=== PATIENT | male | born 1975 | race Caucasian/White ===

== ENCOUNTER 2018-06-21 15:03 | Outpatient (CLI) | payer OTHER ==
--- NOTE | 2018-06-21 15:42 | XRAY Report ---
Reason: TENDINITIS OF RT WRIST Procedure Date: 06/21/2018 Accession Number: [id number] / [id number] Procedure: WCP - Wrist 3 View RT CPT Code: FULL RESULT: EXAM: RIGHT WRIST RADIOGRAPHY. EXAM DATE: 06/21/2018 03:24 PM. CLINICAL HISTORY: Tendinitis of right wrist. COMPARISON: None. TECHNIQUE: 3 views. FINDINGS: Bones: Normal. No fractures or bone lesions. Joints: Normal. No subluxations. Soft Tissues: Normal. No soft tissue swelling. IMPRESSION: Normal wrist radiography. RADIA
== END 2018-06-21 15:04 | disposition home or self-care (01) ==
LOC: DI.WCP 15:03
PROVIDERS: ATTEND Physician Assistant
DX: M77.9 Enthesopathy, unspecified (principal)

== ENCOUNTER 2025-01-18 17:30 | Observation (INO) ==
--- NOTE | 2025-01-18 17:37 | ED Physician Documentation ---
History of Present Illness Stated complaint Stated Complaint: PNEUMO Chief complaint Chief Complaint: Resp History obtained from History obtained from: Patient and EMS Additonal information Additional information: Previously healthy 49-year-old gentleman developed some upper back pain today and then shortness of breath. He went to the clinic where he had a chest x-ray done which shows a very large pneumothorax with some tension physiology on my personal interpretation. His vital signs though have been stable. He is never had a pneumothorax before. He does vape cannabis, does not smoke cigarettes. Meds/Allgy Home Medications Ambulatory Orders Medication Instructions Recorded Confirmed hydrocodone 5 mg-acetaminophen 325 1 - 2 ea PO Q6H PRN pain #14 tabs 05/19/16 mg tablet Allergies Allergies Allergy/AdvReac Type Severity Reaction Status Date / Time No Known Drug Allergies Allergy Verified 01/18/25 15:22 PFSH Active Problems All Active Problems (Updated 01/18/25 @ 18:24 by Zac Blake MD) Primary spontaneous pneumothorax (Acute) Social History Social History (Updated 01/18/25 @ 15:23 by Brooks Ho MA) Smoking Status: Never smoker Do you dip or chew tobacco?: No Do you vape?: No Do you feel safe in your home environment?: Yes History of physical, verbal, emotional, or financial abuse?: No Exam Exam Vital Signs: Vital Signs x48h Pulse Resp BP Pulse Ox O2 Flow Rate 01/18/25 18:21 88 20 01/18/25 18:16 91 21 136/84 H 98 0 01/18/25 18:14 136/84 H 01/18/25 18:08 93 132/72 H 97 01/18/25 18:03 86 120/72 99 01/18/25 17:58 86 136/92 H 98 01/18/25 17:54 98 152/106 H 98 01/18/25 17:46 100 149/110 H 98 01/18/25 17:30 104 H 27 H 148/104 H 97 Constitutional Looks mildly uncomfortable and tachypneic with mild tachycardia. Respiratory normal respiratory effort and clear to auscultation bilaterally Absent right breath sounds Gastrointestinal abdomen soft to palpation and nontender to palpation Results Vitals Vitals: Vital Signs - 24 hr 01/18/25 17:30 01/18/25 17:46 01/18/25 17:54 Pulse Rate 104 H 100 98 Respiratory Rate 27 H Blood Pressure 148/104 H 149/110 H 152/106 H O2 Saturation 97 98 98 O2 Source Room air If not protocol: Oxygen Flow, liters/minute Sedation scale Pain Intensity 7 01/18/25 17:58 01/18/25 17:59 01/18/25 18:03 Pulse Rate 86 86 Respiratory Rate Blood Pressure 136/92 H 120/72 O2 Saturation 98 99 O2 Source If not protocol: Oxygen Flow, liters/minute Sedation scale Pain Intensity 8 01/18/25 18:08 01/18/25 18:14 01/18/25 18:16 Pulse Rate 93 91 Respiratory Rate 21 Blood Pressure 132/72 H 136/84 H 136/84 H O2 Saturation 97 98 O2 Source Room air If not protocol: Oxygen Flow, liters/minute 0 Sedation scale 0-Fully awake Pain Intensity 7 01/18/25 18:21 Pulse Rate 88 Respiratory Rate 20 Blood Pressure O2 Saturation O2 Source If not protocol: Oxygen Flow, liters/minute Sedation scale Pain Intensity Oxygen O2 Source Room air Labs Labs: Laboratory Tests 01/18/25 17:43 WBC 10.3 RBC 5.07 Hgb 14.7 Hct 45.7 MCV 90.1 MCH 29.0 MCHC 32.2 RDW 12.5 Plt Count 268 MPV 9.2 Neut # (Auto) 7.9 H Lymph # (Auto) 1.3 L King # (Auto) 1.1 H Eos # (Auto) 0.1 Baso # (Auto) 0.0 Absolute Nucleated RBC 0.00 Nucleated RBC % 0.0 PT 13.3 H INR 1.2 Sodium 139 Potassium 4.0 Chloride 104 Carbon Dioxide 28 Anion Gap 7.0 BUN 12 Creatinine 0.9 Estimated GFR (MDRD) 89 Glucose 110 H Calcium 9.4 Procedures Chest Tube (location) - Major right 4th middle axillary line: Chest tube preparation: Consent obtained, Time out completed and Sterile prep and drape Chest tube location: Right Chest tube anesthesia: Lidocaine Chest tube size: 20 Chest tube return: Air and Connected to suction Chest tube after care: Sutured, Confirmed with xray and Pt tolerated well Procedural sedation Pre-Sedation Assessment Date: 01/18/25 Pre-Sedation Assessment Time must be prior to sedation: 17:40 Sedation prep: Informed consent, Time out completed, PE performed and ASA 1 - healthy Sedation Medications: versed (2mg IV and fentanyl 50mcg IV) Mallampati classification: I Patient status during sedation: Alert and Maintained airway Sedation recovery: Recovered uneventfully Time in sedation (Minutes): 15 PD Medical Decision Making ED course ED course: This is a 49-year-old gentleman with spontaneous pneumothorax. He does fit sort of the classic pattern of being a tall thin male although he has not had it before. He was seen immediately on arrival and a chest tube was placed under light sedation which she tolerated well. I spoke with Dr. Mak for chest tube management and Dr. Iglesias for admission at 6:[address] Mak did recommend CT to rule out structural lung disease which I have ordered. Postprocedural CT looking excellent with minimal remaining pneumothorax on my independent view. CBC, INR, and CMP unremarkable. Critical Care Critical Care Provided: Yes Time(min): 35 Time Includes: Direct patient care, Review records, Reassess patient and Document care Data interpretation: Labs and Pulse ox Procedures included in critical care time: Peripheral IV Procedures excluded from critical care time: Chest tube Discharge Plan Discharge Patient Disposition: [facility] DC/Xfer Condition: Serious Clinical Impression: Primary spontaneous pneumothorax Interventions: ED Admission Assessment Last Done: 01/18/25 18:45
[2025-01-18 17:46] LABS: HCT - HEMATOCRIT 45.7 % (42.0-52.0); HGB - HEMOGLOBIN 14.7 g/dL (14.0-18.0); MEAN PLATELET VOLUME 9.2 fL (7.4-11.4); NRBC ABSOLUTE COUNT (AUTO) 0.00 x10^3/uL; NUCLEATED RED BLOOD CELLS AUTO 0.0 /100WBC; PLT - PLATELET COUNT 268 10^3/uL (130-450); RED CELL DISTRIBUTION WIDTH 12.5 % (12.0-15.0)
[2025-01-18 17:57] LABS: INR 1.2 (0.8-1.2); PT - PROTHROMBIN TIME 13.3 secs (9.9-12.6)
[2025-01-18] MEDS: fentaNYL 100 MCG/2 ML VIAL IVP STA (17:59)
[2025-01-18] MEDS: MIDAZOLAM 2 MG/2 ML VIAL IVP STA (18:01)
[2025-01-18] MEDS: LIDOCAINE 1%-EPI 1:100000 20 ML MDV SUBQ STA (18:01)
[2025-01-18 18:02] LABS: BUN - BLOOD UREA NITROGEN 12.0 mg/dL (6-20); CARBON DIOXIDE - CO2 28.0 mmol/L (21-32); CREATININE 0.9 mg/dL (0.6-1.3); GFR - MDRD 89.0 (>89)
--- NOTE | 2025-01-18 18:56 | XRAY Report ---
PROCEDURE: XR Chest for Line Placement INDICATIONS: post chest tube TECHNIQUE: One view of the chest was acquired. COMPARISON: Chest radiograph from the same day FINDINGS: Surgical changes and devices: Interval placement of right-sided chest tube. Lungs and pleura: There is interval reexpansion of right lung with a small residual right apical pneumothorax measures 2.3 cm in craniocaudal dimension. Left lung is clear. No significant pleural effusion. Mediastinum: Mediastinal contours appear normal. Heart size is normal. Bones and chest wall: No suspicious bony lesions. Overlying soft tissues appear unremarkable. IMPRESSION: Interval placement of right-sided chest tube with interval reexpansion of right lung and small residual right-sided pneumothorax as above. Reviewed by: Javier Rosado MD on 01/18/2025 6:52 PM PDT Approved by: Javier Rosado MD on 01/18/2025 6:52 PM PDT Station ID: [id number]
[2025-01-18] MEDS ORDERED: SODIUM CHLORIDE FLUSH 0.9% 10 ML SYRINGE IVP PRN (19:00)
[2025-01-18] MEDS ORDERED: ONDANSETRON 4 MG/2 ML VIAL IVP PRN (19:00)
--- NOTE | 2025-01-18 19:28 | CONSULTATION NOTE ---
Referring Provider Name of Referring Provider:: Geeta Mak Consult Date: 01/18/25 Chief Complaint Chief Complaint Chief Complaint: Back pain History of Present Illness Admitted From Admitted From:: Home History Obtained From History obtained from: Patient interview History of Present Illness HPI Comment/Other: 49-year-old male, No past medical history. He was standing on top of the stump and the back of a dump truck attempting to fix a cover over the top of it when he slipped and fell with his tailbone landing directly on top of the stump that he was standing on. He reports that he had a knot in his back and started to gradually develop cough and difficulty with breathing. He reports the pain is worsened with coughing and laughing, and only minimally improved with ibuprofen. Reports history of vaping cannabis, but never cigarettes. He presented to the walk-in clinic today for continued back pain and shortness of breath. Workup there revealed possible coccygeal fracture on x-ray. Chest x-ray showed right sided pneumothorax as well as a first rib fracture. He was then transported to the hospital by EMS for further evaluation In the ER, right-sided chest tube was placed with interval reexpansion of the right lung demonstrated on chest x-ray and only small right residual apical pneumothorax. General surgery was contacted by ER provider for admission, and hospitalist was consulted for medical management Meds/Allgy Home Medications Ambulatory Orders Medication Instructions Recorded Confirmed hydrocodone 5 mg-acetaminophen 325 1 - 2 ea PO Q6H PRN pain #14 tabs 05/19/16 mg tablet Allergies Allergies Allergy/AdvReac Type Severity Reaction Status Date / Time No Known Drug Allergies Allergy Verified 01/18/25 15:22 PFSH Active Problems All Active Problems (Updated 01/18/25 @ 18:24 by Zac Blake MD) Primary spontaneous pneumothorax (Acute) Social History Social History (Updated 01/18/25 @ 15:23 by Brooks Ho MA) Smoking Status: Never smoker Do you dip or chew tobacco?: No Do you vape?: No Do you feel safe in your home environment?: Yes History of physical, verbal, emotional, or financial abuse?: No Results Lab Results Lab results reviewed: Yes 01/18/25 17:43 01/18/25 17:43 Other Lab Results: Lab Results x24hrs 01/18/25 Range/Units 17:43 WBC 10.3 (4.8-10.8) x10^3/uL RBC 5.07 (4.70-6.10) 10^6/uL Hgb 14.7 (14.0-18.0) g/dL Hct 45.7 (42.0-52.0) % MCV 90.1 (80.0-94.0) fL MCH 29.0 (27.0-31.0) pg MCHC 32.2 (32.0-36.0) g/dL RDW 12.5 (12.0-15.0) % Plt Count 268 (130-450) 10^3/uL MPV 9.2 (7.4-11.4) fL Neut # (Auto) 7.9 H (1.5-6.6) 10^3/uL Lymph # (Auto) 1.3 L (1.5-3.5) 10^3/uL [place] # (Auto) 1.1 H (0.0-1.0) 10^3/uL Eos # (Auto) 0.1 (0.0-0.7) 10^3/uL Baso # (Auto) 0.0 (0.0-0.1) 10^3/uL Absolute Nucleated RBC 0.00 x10^3/uL Nucleated RBC % 0.0 /100WBC PT 13.3 H (9.9-12.6) secs INR 1.2 (0.8-1.2) Sodium 139 (135-145) mmol/L Potassium 4.0 (3.5-4.5) mmol/L Chloride 104 (101-111) mmol/L Carbon Dioxide 28 (21-32) mmol/L Anion Gap 7.0 (6-13) BUN 12 (6-20) mg/dL Creatinine 0.9 (0.6-1.3) mg/dL Estimated GFR (MDRD) 89 (>89) Glucose 110 H (74-104) mg/dL Calcium 9.4 (8.5-10.3) mg/dL Review of Systems Status of ROS: 10 or more systems reviewed and unremarkable except as noted in history and below Exam Exam Vital Signs: Vital Signs x48h Pulse Resp BP Pulse Ox O2 Flow Rate 01/18/25 18:45 159/103 H 01/18/25 18:45 77 20 159/103 H 97 01/18/25 18:21 88 20 01/18/25 18:16 91 21 136/84 H 98 0 01/18/25 18:14 136/84 H 01/18/25 18:08 93 132/72 H 97 01/18/25 18:03 86 120/72 99 01/18/25 17:58 86 136/92 H 98 01/18/25 17:54 98 152/106 H 98 01/18/25 17:46 100 149/110 H 98 01/18/25 17:30 104 H 27 H 148/104 H 97 Constitutional normal general appearance and no apparent distress Respirations a bit shallow from pain HENMT normocephalic Eyes PERRL Neck/C-Spine visual inspection normal Lymph no lymphadenopathy noted Chest inspection of chest normal and palpation of chest normal Right lateral chest tube with dressing in place. No subcu air Respiratory breath sounds equal bilaterally and normal respiratory effort Cardiovascular normal heart rate noted Gastrointestinal abdomen normal to inspection and abdomen soft to palpation Extremities normal to inspection and normal to palpation Neurology GCS 15 Psychiatry oriented x3 Skin skin color normal Conclusion/Plan Problem List (1) Primary spontaneous pneumothorax: Plan: Chest tube placed by ER provider, chest x-ray shows interval improvement Serial two-view chest x-rays Pain management with Tylenol 975 mg p.o. every 8 hours, gabapentin 100 mg p.o. 3 times daily, Hydromorphone 0.5 mg IV push as needed, ibuprofen 600 mg p.o. every 6 hours scheduled, lidocaine patch, and as needed oxycodone I-S, chest tube care per protocol Plan Patient is placed in observation by surgical services, hospitalist team will follow for medical management Lab Results Lab results reviewed: Yes 01/18/25 17:43 01/18/25 17:43
--- NOTE | 2025-01-18 19:37 | CT Report ---
PROCEDURE: CT Chest W INDICATIONS: spontaneous ptx CONTRAST: Omni 300 100mL TECHNIQUE: After the administration of intravenous contrast, a CT scan of the chest was performed. Images were recorded and evaluated at appropriate window settings. Reformats: axial MIP of the chest, coronal and sagittal. For radiation dose reduction, the following was used: automated exposure control, adjustment of mA and/or kV according to patient size. COMPARISON: Chest radiograph from the same day FINDINGS: Image quality: Diagnostic. Chest wall and lower neck: No thyroid nodule which requires sonographic follow up. No breast mass. No axillary or supraclavicular adenopathy by size. Lungs and pleura: There is interval placement of a right-sided chest tube, the tip is along posterior lateral aspect of the right upper lung field. Small residual pneumothorax is seen in anterior, lateral and posterior medial aspect of the right lung base and anterior aspect of right apex. No left-sided pneumothorax. No significant pleural effusion. Dependent atelectasis/small infiltrates in posterior aspect of the right lung base is seen. No suspicious pulmonary nodule or bullous disease is seen in bilateral aerated lung santacruz. Mediastinum: Heart size is normal. No pericardial effusion. No large vessel abnormality. No mediastinal adenopathy by size criteria. Bones: No aggressive osseous abnormality. Upper Abdomen: Unremarkable. IMPRESSION: 1. Presence of the right-sided chest tube with small residual right-sided pneumothorax as above. Compressive atelectasis versus small infiltrate in posterior medial aspect of right lower lobe. No significant bullous disease. No suspicious pulmonary nodule or mass. No pleural effusion or left-sided pneu mothorax. 2. No mediastinal or hilar lymphadenopathy. No pericardial effusion. Reviewed by: Javier Rosado MD on 01/18/2025 7:34 PM PDT Approved by: Javire Rosado MD on 01/18/2025 7:34 PM PDT Station ID: [id number]
[2025-01-18] MEDS: IBUPROFEN 600 MG TABLET PO SCH (19:38)
[2025-01-18] MEDS: ACETAMINOPHEN 325 MG TABLET PO SCH (19:38)
[2025-01-18] MEDS: SODIUM CHLORIDE 0.9% 1,000 ML IV SCH (19:39)
[2025-01-18] MEDS: HYDROmorphone 1 MG/ML CARPUJECT IVP PRN (19:39)
[2025-01-18] MEDS: GABAPENTIN 100 MG CAPSULE PO SCH (22:15)
[2025-01-19] MEDS: SODIUM CHLORIDE FLUSH 0.9% 10 ML SYRINGE IVP SCH (00:22)
[2025-01-19] MEDS: oxyCODONE 5 MG TABLET PO PRN (04:39)
[2025-01-19 06:28] LABS: HCT - HEMATOCRIT 42.4 % (42.0-52.0); HGB - HEMOGLOBIN 14.1 g/dL (14.0-18.0); MEAN PLATELET VOLUME 9.6 fL (7.4-11.4); NRBC ABSOLUTE COUNT (AUTO) 0.00 x10^3/uL; NUCLEATED RED BLOOD CELLS AUTO 0.0 /100WBC; PLT - PLATELET COUNT 240 10^3/uL (130-450); RED CELL DISTRIBUTION WIDTH 12.5 % (12.0-15.0)
[2025-01-19 06:45] LABS: BUN - BLOOD UREA NITROGEN 13.0 mg/dL (6-20); CARBON DIOXIDE - CO2 28.0 mmol/L (21-32); CREATININE 1.0 mg/dL (0.6-1.3); GFR - MDRD 79.0 (>89)
--- NOTE | 2025-01-19 08:53 | PHARMACY PROGRESS NOTE ---
Best Possible Medication History Admit Date and Time: 01/18/25 1823 Home Medications Medication Instructions Recorded Confirmed Type ibuprofen 200 mg tablet (Advil) 800 mg PO TID PRN pain 01/19/25 01/19/25 History Processed by: Pharmacy Medications reviewed in ED?: No Medication History completed: Yes Patient Interview: Pt interview ONLY source [facility] Statement: As the person ultimately responsible for medication therapy, providers are able to order a medication from an existing home medication list in [facility] via the "Reconcile Routine" prior to Confirmation of that medication by manager sales support. Such practice is discouraged except when the physician, in their clinical judgment, deems that a medical need exists for a medication without regard to previous use.
--- NOTE | 2025-01-19 09:15 | XRAY Report ---
PROCEDURE: XR Chest 2V INDICATIONS: pneumothorax, s/p chest tube TECHNIQUE: 2 views of the chest were acquired. COMPARISON: 01/18/2025 at 6:55 p.m. FINDINGS: Surgical changes and devices: Right-sided chest tube remains in place. Overlying monitoring wires are present. Lungs and pleura: Small right apical pneumothorax is redemonstrated, stable to slightly increased compared to the prior exam. No tension. Lungs are otherwise normally aerated. Mediastinum: Mediastinal contours appear normal. Heart size is normal. Bones and chest wall: No suspicious bony lesions. Overlying soft tissues appear unremarkable. IMPRESSION: Slight increase size of small apical right pneumothorax with chest tube in place. Recommend continuing chest tube to suction. Reviewed by: Olena Perales MD on 01/19/2025 9:11 AM PDT Approved by: Olena Perales MD on 01/19/2025 9:11 AM PDT Station ID: [id number]
--- NOTE | 2025-01-19 10:58 | HISTORY & PHYSICAL EXAMINATION ---
History of Present Illness History of Present Illness HPI Comment/Other: 49M with no significant PMH/PSH other than vaping (cannabis) presents after fall with tension pneumothorax. He fell from a truck bed landing with his coccyx on a tree stump while working on afternoon. No head strike or other impact site, no LOC. He had significant pain around the tailbone, and felt like the wind was knocked out of him, went home to rest. Went to work Tuesday morning and after a brief effort of relatively mild exertion felt significantly SOB. From there he presented to the [facility], a CXR showed a right pneumothorax and he was sent to the ED. *Note that [facility] provider note indicates that CXR also showed 1st rib fx, that CXR image/read is not available to me, and 1st rib fx not supported on any subsequent imaging since presentation to the ED.* In the ED his repeat CXR showed mediastinal deviation c/w tension pneumothorax; he was tachycardic and tachypneic but normotensive. Dr. Blake placed a right sided chest tube (lateral MAL 4th ICS) and he was admitted to the floor for continued management. Since admission his hemodynamics have normalized and his pain control has improved - though still has considerable pain on deep inspiration. He has no prior pneumothorax. Denies abdominal pain/nausea. No extremity pain. CT with scant ssf in canister, tidaling with respiration, large air leak present with cough. Colonoscopy Questionnaire In the last 30 days have you experienced these symptoms? PFSH Active Problems All Active Problems (Updated 01/19/25 @ 11:11 by Geeta Mak DO) Spine pain, multilevel (Acute) Fall (on) (from) other stairs and steps, initial encounter (Acute) Primary spontaneous pneumothorax (Acute) Surgical History Surgical History (Updated 01/19/25 @ 10:48 by Geeta Mak DO) History of elbow surgery right elbow Social History Social History Smoking Status: Never smoker Do you dip or chew tobacco?: No Do you vape?: Yes Level: Independent Do you feel safe in your home environment?: Yes History of physical, verbal, emotional, or financial abuse?: No Substance Use: cannabis (any form) Meds/Allgy Home Medications Ambulatory Orders Medication Instructions Recorded Confirmed ibuprofen 200 mg tablet (Advil) 800 mg PO TID PRN pain 01/19/25 01/19/25 Allergies Allergies Allergy/AdvReac Type Severity Reaction Status Date / Time No Known Drug Allergies Allergy Verified 01/18/25 15:22 Results Lab Results 01/19/25 05:48 01/19/25 05:48 Other Lab Results: Lab Results x24hrs 01/19/25 01/18/25 Range/Units 05:48 17:43 WBC 6.1 10.3 (4.8-10.8) x10^3/uL RBC 4.63 L 5.07 (4.70-6.10) 10^6/uL Hgb 14.1 14.7 (14.0-18.0) g/dL Hct 42.4 45.7 (42.0-52.0) % MCV 91.6 90.1 (80.0-94.0) fL MCH 30.5 29.0 (27.0-31.0) pg MCHC 33.3 32.2 (32.0-36.0) g/dL RDW 12.5 12.5 (12.0-15.0) % Plt Count 240 268 (130-450) 10^3/uL MPV 9.6 9.2 (7.4-11.4) fL Neut # (Auto) 3.3 7.9 H (1.5-6.6) 10^3/uL Lymph # (Auto) 1.5 1.3 L (1.5-3.5) 10^3/uL [place] # (Auto) 0.7 1.1 H (0.0-1.0) 10^3/uL Eos # (Auto) 0.5 0.1 (0.0-0.7) 10^3/uL Baso # (Auto) 0.0 0.0 (0.0-0.1) 10^3/uL Absolute Nucleated RBC 0.00 0.00 x10^3/uL Nucleated RBC % 0.0 0.0 /100WBC PT 13.3 H (9.9-12.6) secs INR 1.2 (0.8-1.2) Sodium 135 139 (135-145) mmol/L Potassium 3.9 4.0 (3.5-4.5) mmol/L Chloride 103 104 (101-111) mmol/L Carbon Dioxide 28 28 (21-32) mmol/L Anion Gap 4.0 L 7.0 (6-13) BUN 13 12 (6-20) mg/dL Creatinine 1.0 0.9 (0.6-1.3) mg/dL Estimated GFR (MDRD) 79 L 89 (>89) Glucose 98 110 H (74-104) mg/dL Calcium 8.9 9.4 (8.5-10.3) mg/dL Diagnostic Imaging Results Diagnostic Imaging Results: positive Read contemporaneously Diagnostic Imaging Results Comments: EXAM: [id number] XR/CXR2VW ([id number]) PROCEDURE: XR Chest 2V INDICATIONS: fall, px in upper back, cough TECHNIQUE: 2 views of the chest were acquired. COMPARISON: 05/19/2015 FINDINGS: Surgical changes and devices: None. Lungs and pleura: Large, complete right pneumothorax with leftward shift of the mediastinal structures. Left lung is normally aerated. Mediastinum: Leftward mediastinal shift. Cardiomediastinal contour is otherwise normal. Bones and chest wall: No visible rib fractures. IMPRESSION: Large, tension right pneumothorax. Subsequent radiographs demonstrate chest tube placement. EXAM: [id number] XR/CXRLP ([id number]) PROCEDURE: XR Chest for Line Placement INDICATIONS: post chest tube TECHNIQUE: One view of the chest was acquired. COMPARISON: Chest radiograph from the same day FINDINGS: Surgical changes and devices: Interval placement of right-sided chest tube. Lungs and pleura: There is interval reexpansion of right lung with a small residual right apical pneumothorax measures 2.3 cm in craniocaudal dimension. Left lung is clear. No significant pleural effusion. Mediastinum: Mediastinal contours appear normal. Heart size is normal. Bones and chest wall: No suspicious bony lesions. Overlying soft tissues appear unremarkable. IMPRESSION: Interval placement of right-sided chest tube with interval reexpansion of right lung and small residual right-sided pneumothorax as above. Reviewed by: Javier Rosado MD on 01/18/2025 6:52 PM PDT Approved by: Javier Rosado MD on 01/18/2025 6:52 PM PDT EXAM: [id number] CT/CHTW ([id number]) PROCEDURE: CT Chest W INDICATIONS: spontaneous ptx CONTRAST: Omni 300 100mL TECHNIQUE: After the administration of intravenous contrast, a CT scan of the chest was performed. Images were recorded and evaluated at appropriate window settings. Reformats: axial MIP of the chest, coronal and sagittal. For radiation dose reduction, the following was used: automated exposure control, adjustment of mA and/or kV according to patient size. COMPARISON: Chest radiograph from the same day FINDINGS: Image quality: Diagnostic. Chest wall and lower neck: No thyroid nodule which requires sonographic follow up. No breast mass. No axillary or supraclavicular adenopathy by size. Lungs and pleura: There is interval placement of a right-sided chest tube, the tip is along posterior lateral aspect of the right upper lung field. Small residual pneumothorax is seen in anterior, lateral and posterior medial aspect of the right lung base and anterior aspect of right apex. No left-sided pneumothorax. No significant pleural effusion. Dependent atelectasis/small infiltrates in posterior aspect of the right lung base is seen. No suspicious pulmonary nodule or bullous disease is seen in bilateral aerated lung [place]. Mediastinum: Heart size is normal. No pericardial effusion. No large vessel abnormality. No mediastinal adenopathy by size criteria. Bones: No aggressive osseous abnormality. Upper Abdomen: Unremarkable. IMPRESSION: 1. Presence of the right-sided chest tube with small residual right-sided pneumothorax as above. Compressive atelectasis versus small infiltrate in posterior medial aspect of right lower lobe. No significant bullous disease. No suspicious pulmonary nodule or mass. No pleural effusion or left-sided pneumothorax. 2. No mediastinal or hilar lymphadenopathy. No pericardial effusion. Reviewed by: Javier Rosado MD on 01/18/2025 7:34 PM PDT Approved by: Javier Rosado MD on 01/18/2025 7:34 PM PDT EXAM: [id number] XR/CXR2VW ([id number]) PROCEDURE: XR Chest 2V INDICATIONS: pneumothorax, s/p chest tube TECHNIQUE: 2 views of the chest were acquired. COMPARISON: 01/18/2025 at 6:55 p.m. FINDINGS: Surgical changes and devices: Right-sided chest tube remains in place. Overlying monitoring wires are present. Lungs and pleura: Small right apical pneumothorax is redemonstrated, stable to slightly increased compared to the prior exam. No tension. Lungs are otherwise normally aerated. Mediastinum: Mediastinal contours appear normal. Heart size is normal. Bones and chest wall: No suspicious bony lesions. Overlying soft tissues appear unremarkable. IMPRESSION: Slight increase size of small apical right pneumothorax with chest tube in place. Recommend continuing chest tube to suction. Reviewed by: Olena Peralse MD on 01/19/2025 9:11 AM PDT Approved by: Olena Perales MD on 01/19/2025 9:11 AM PDT EXAM: [id number] XR/SACCOX ([id number]) PROCEDURE: XR Sacrum/Coccyx INDICATIONS: fall, px to coccyx TECHNIQUE: 3 views of the sacrum and coccyx acquired. COMPARISON: None. FINDINGS: Bones: No fractures or dislocations. No suspicious bony lesions. Degenerative disc height loss in the visible lower lumbar spine. Soft tissues: Visualized bowel gas pattern is normal. No suspicious soft tissue densities. IMPRESSION: No acute fractures. Reviewed by: Olena Perales MD on 01/19/2025 9:09 AM PDT Approved by: Olena Perales MD on 01/19/2025 9:09 AM PDT Review of Systems Status of ROS: 10 or more systems reviewed and unremarkable except as noted in history and below Exam Exam Vital Signs: Vital Signs x48h Temp Pulse Resp BP Pulse Ox 01/19/25 07:45 36.7 C 45 L 18 144/86 H 98 01/19/25 04:42 36.6 C 53 L 16 131/83 H 97 Constitutional normal general appearance, no apparent distress and average body habitus HENMT normocephalic Chest mild ttp of right chest wall, right supraclavicular space. No ecchymosis. Chest tube in place at right lateral chest wall. Respiratory breath sounds equal bilaterally and normal respiratory effort Cardiovascular normal heart rate noted and regular rhythm noted Gastrointestinal abdomen normal to inspection Back/Pelvis thoracic spine tenderness noted and lumbar spine tenderness noted Extremities normal to inspection Psychiatry oriented x3 Skin skin color normal Impression/Plan Problem List (1) Primary spontaneous pneumothorax: (2) Fall (on) (from) other stairs and steps, initial encounter: (3) Spine pain, multilevel: Plan 49yoM s/p fall from truck and resultant right tension pneumothorax and multilevel spine pain. HD2: - Tension physiology resolved with chest tube placement, but has large apical blebs and persistent large air leak. - maintain CT to wall suction - XR does not show coccyx fx, but has persistent tail bone pain and multilevel spine pain - check CT spine (c/l/t) today - multimodal pain control: scheduled PO tylenol, motrin, gabapentin, lidocaine patch, PRN oxycodone and dilaudid. Can transition to ELECT EQU[employer] MAINT ENG if uncontrolled - encourage ambulation/IS/Deep breathing/deep coughing. OK for waterseal during ambulation only. - daily CXR - if ptx/airleak not decreasing tomorrow with advance CT further. - Regular diet/stop IVF - Repeat labs tomorrow, if stable will DC - Start lovenox today - bowel regimen in conjunction with narcotic requirement Dispo: pending resolution of pneumothorax. Geeta Mak DO, FACS General Surgeon, Mary
[2025-01-19] MEDS: ENOXAPARIN 40 MG/0.4 ML SYRINGE SUBQ SCH (11:19)
[2025-01-19] MEDS: DOCUSATE SODIUM 100 MG CAPSULE PO SCH (11:19)
--- NOTE | 2025-01-19 12:44 | PROVIDER PROGRESS NOTE ---
Subjective Prog Note Date Prog Note Date: 01/19/25 Subjective Pt reports feeling: Improved Subjective: Reports pain is manageable Current Medications Current Medications Current Medications: Current Medications Generic Name Dose Route Start Last Admin Trade Name Freq PRN Reason Stop Dose Admin Acetaminophen 975 mg 01/18/25 19:00 01/19/25 11:19 Acetaminophen 325 Mg Tablet PO 975 mg Q8H KASI Administration Docusate Sodium 100 mg 01/19/25 12:00 01/19/25 11:19 Docusate Sodium 100 Mg Capsule PO 100 mg DAILY KASI Administration Enoxaparin Sodium 40 mg 01/19/25 12:00 01/19/25 11:19 Enoxaparin 40 Mg/0.4 Ml Syringe SUBQ 40 mg DAILY KASI Administration Gabapentin 100 mg 01/18/25 22:00 01/19/25 05:59 Gabapentin 100 Mg Capsule PO 100 mg TID KASI Administration Hydromorphone HCl 0.5 mg 01/18/25 19:00 01/18/25 22:15 Hydromorphone 1 Mg/Ml Carpuject IVP 0.5 mg Q2HR PRN Administration Severe Pain (Level 7-10) Ibuprofen 600 mg 01/18/25 19:00 01/19/25 11:18 Ibuprofen 600 Mg Tablet PO 600 mg Q6HR KASI Administration Lidocaine 1 patch 01/19/25 09:00 01/19/25 08:47 Lidocaine Patch 4% TOP 1 patch DAILY KASI Administration Ondansetron HCl 4 mg 01/18/25 19:00 Ondansetron 4 Mg/2 Ml Vial IVP Q6H PRN Nausea / Vomiting Oxycodone HCl 5 mg 01/18/25 19:00 01/19/25 04:39 Oxycodone 5 Mg Tablet PO 5 mg Q4HR PRN Administration Moderate Pain (Level 4-6) Polyethylene Glycol 17 gm 01/19/25 12:00 01/19/25 11:18 Polyethylene Glycol 3350 17 Gm Packet PO 17 gm DAILY KASI Administration Sodium Chloride 10 ml 01/19/25 01:00 01/19/25 10:05 Sodium Chloride Flush 0.9% 10 Ml Syringe IVP 10 ml 0100,0900,1700 KASI Administration Sodium Chloride 10 ml 01/18/25 19:00 Sodium Chloride Flush 0.9% 10 Ml Syringe IVP PRN PRN NEEDED PER PROVIDER ORDERS Objective Vital Signs/Intake & Output Reviewed Vital Signs: Yes Vital Signs: Vital Signs x48h Temp Pulse Resp BP Pulse Ox 01/19/25 11:32 37.1 C 53 L 18 160/83 H 99 01/19/25 07:45 36.7 C 45 L 18 144/86 H 98 01/19/25 04:42 36.6 C 53 L 16 131/83 H 97 Intake & Output: Intake & Output 01/16/25 01/17/25 01/18/25 01/19/25 23:59 23:59 23:59 23:59 Intake Total 100 / 100 1536 / 1536 Output Total 450 / 450 900 / 900 Balance -350 / -350 636 / 636 Weight (kg) 70.5 kg Objective General Appearance: positive No acute distress and Alert Eyes Bilateral: positive Normal inspection ENT: positive ENT inspection nml Neck: positive Nml inspection Respiratory: positive Breath sounds nml; negative Chest non-tender Cardiovascular: positive Regular rate & rhythm Abdomen: positive Non-tender Skin: positive Color nml Extremities: positive Non-tender Neurologic/Psychiatric: positive Oriented x3 Lab Results 01/19/25 05:48 01/19/25 05:48 Other Labs: Lab Results x24hrs 01/19/25 01/18/25 Range/Units 05:48 17:43 WBC 6.1 10.3 (4.8-10.8) x10^3/uL RBC 4.63 L 5.07 (4.70-6.10) 10^6/uL Hgb 14.1 14.7 (14.0-18.0) g/dL Hct 42.4 45.7 (42.0-52.0) % MCV 91.6 90.1 (80.0-94.0) fL MCH 30.5 29.0 (27.0-31.0) pg MCHC 33.3 32.2 (32.0-36.0) g/dL RDW 12.5 12.5 (12.0-15.0) % Plt Count 240 268 (130-450) 10^3/uL MPV 9.6 9.2 (7.4-11.4) fL Neut # (Auto) 3.3 7.9 H (1.5-6.6) 10^3/uL Lymph # (Auto) 1.5 1.3 L (1.5-3.5) 10^3/uL [place] # (Auto) 0.7 1.1 H (0.0-1.0) 10^3/uL Eos # (Auto) 0.5 0.1 (0.0-0.7) 10^3/uL Baso # (Auto) 0.0 0.0 (0.0-0.1) 10^3/uL Absolute Nucleated RBC 0.00 0.00 x10^3/uL Nucleated RBC % 0.0 0.0 /100WBC PT 13.3 H (9.9-12.6) secs INR 1.2 (0.8-1.2) Sodium 135 139 (135-145) mmol/L Potassium 3.9 4.0 (3.5-4.5) mmol/L Chloride 103 104 (101-111) mmol/L Carbon Dioxide 28 28 (21-32) mmol/L Anion Gap 4.0 L 7.0 (6-13) BUN 13 12 (6-20) mg/dL Creatinine 1.0 0.9 (0.6-1.3) mg/dL Estimated GFR (MDRD) 79 L 89 (>89) Glucose 98 110 H (74-104) mg/dL Calcium 8.9 9.4 (8.5-10.3) mg/dL Assessment/Plan Problem List (1) Primary spontaneous pneumothorax: Impression: Admitted under surgery Small bore lateral right chest tube in place to suction Pain management with scheduled Tylenol, gabapentin, ibuprofen, lidocaine patch as well as as needed oxycodone and hydromorphone Patient is not requesting his PRNs, preferring to manage his pain with only his scheduled nonnarcotics I-S, chest tube care per protocol (2) Spine pain, multilevel: Impression: CT scan C, L, T-spine ordered by surgery Pain management as above Denies numbness in his legs
--- NOTE | 2025-01-19 12:54 | CT Report ---
PROCEDURE: CT Cervical Spine WO INDICATIONS: s/p fall onto tailbone with total spine tenderness TECHNIQUE: Noncontrast images acquired from the skull base to the T4 level. Sagittal and coronal reformats were then constructed. For radiation dose reduction, the following was used: automated exposure control, adjustment of mA and/or kV according to patient size. COMPARISON: Correlation is made with the accompanying imaging. FINDINGS: Image quality: Excellent. Bones: No fractures or dislocations. Visualized superior ribs are intact. There is moderate to space narrowing seen at C3-C4, C4-C5, and C5-C6. At C5-C6, endplate irregularity and sclerosis can be seen. Soft tissues: Prevertebral soft tissues are normal in thickness. No paravertebral hematomas. No apical pneumothoraces. Emphysematous changes can be seen at the lung apices, including subpleural bleb formation. IMPRESSION: Negative for cervical spine fracture. Cervical spine degenerative changes are seen, which are worst at C5-C6. Reviewed by: Lawrence Mckeon MD on 01/19/2025 11:51 AM JAYNA Approved by: Lawrence Mckeon MD on 01/19/2025 11:51 AM JAYNA Station ID: [email or web address]
--- NOTE | 2025-01-19 12:59 | CT Report ---
PROCEDURE: CT Lumbar Spine WO INDICATIONS: s/p fall onto tailbone with total spine tenderness TECHNIQUE: Noncontrast images acquired from the T12 level to the sacrum. Sagittal and coronal reformats were constructed. For radiation dose reduction, the following was used: automated exposure control, adjustment of mA and/or kV according to patient size. COMPARISON: Correlation is made with the accompanying imaging. FINDINGS: Image quality: Excellent. Bones: There is a mildly displaced fracture seen involving S5 segment, as on series 13 image 32 and on series 15 image 590. No lumbar spine fracture is seen. There is minimal retrolisthesis seen at L5-S1. No suspicious lytic or blastic bony lesions. Central spinal caliber is of normal overall caliber. No pars defects. T12-L1: Normal in appearance. L1-L2: Normal in appearance. L2-L3: Normal in appearance. L3-L4: The disc height is well-preserved. Moderate disc bulge is seen at this level. A superimposed central disc protrusion is seen. Mild to moderate facet hypertrophy is seen. Mild to moderate bilateral neural femoral narrowing is seen. Mild central canal narrowing is seen. L4-L5: Moderate loss of disc height is seen. Moderate disc bulge is seen at this level. A superimposed central disc protrusion is seen. Moderate facet hypertrophy is seen. Moderate bilateral neural femoral narrowing can be seen, right worse than left. Moderate central canal narrowing is seen. L5-S1: At least moderate loss of disc height is seen. Moderate disc bulge is seen at this level. Endplate irregularity and sclerosis can be seen. Vacuum disc phenomenon is seen at this level. Moderate bilateral neural foraminal narrowing is seen. No significant central canal narrowing is seen. Soft tissues: No retroperitoneal masses or hematomas. Visualized aorta is normal in caliber. Atherosclerotic calcification is seen. IMPRESSION: There is a mildly displaced fracture seen involving the S5 segment. No lumbar spine fracture is seen. Lower lumbar spine degenerative changes are seen. Reviewed by: Lawrence Mckeon MD on 01/19/2025 11:55 AM JAYNA Approved by: Lawrence Mckeon MD on 01/19/2025 11:55 AM ALJACOBY Station ID: [email or web address]
--- NOTE | 2025-01-19 13:01 | CT Report ---
PROCEDURE: CT Thoracic Spine WO INDICATIONS: s/p fall onto tailbone with total spine tenderness TECHNIQUE: Noncontrast images acquired through the region of interest in the thoracic spine. Sagittal and coronal reformats were then constructed. For radiation dose reduction, the following was used: automated exposure control, adjustment of mA and/or kV according to patient size. COMPARISON: Correlation is made with the accompanying imaging. Correlation is also made with prior chest CT, 01/18/2025. FINDINGS: Image quality: Excellent. Bones: There is normal overall bony alignment. No acute vertebral body compression fractures. No suspicious sclerotic or lytic bony lesions. Central spinal canal is of normal overall caliber. Soft tissues: No paravertebral masses or hematomas. Emphysematous changes can be seen within the visualized lungs. Within the [id number] of this study, there is a trace right-sided pneumothorax. A small amount of soft tissue gas is seen. IMPRESSION: No thoracic spine fracture is seen. There is a trace right-sided pneumothorax, with a small amount of associated soft tissue gas. Reviewed by: Lawrence Mckeon MD on 01/19/2025 11:58 AM JAYNA Approved by: Lawrence Mckeon MD on 01/19/2025 11:58 AM JAYNA Station ID: [email or web address]
[2025-01-20 06:08] LABS: HCT - HEMATOCRIT 41.1 % (42.0-52.0); HGB - HEMOGLOBIN 13.5 g/dL (14.0-18.0); MEAN PLATELET VOLUME 9.7 fL (7.4-11.4); NRBC ABSOLUTE COUNT (AUTO) 0.00 x10^3/uL; NUCLEATED RED BLOOD CELLS AUTO 0.0 /100WBC; PLT - PLATELET COUNT 234 10^3/uL (130-450); RED CELL DISTRIBUTION WIDTH 12.4 % (12.0-15.0)
[2025-01-20 06:25] LABS: BUN - BLOOD UREA NITROGEN 14.0 mg/dL (6-20); CARBON DIOXIDE - CO2 30.0 mmol/L (21-32); CREATININE 1.0 mg/dL (0.6-1.3); GFR - MDRD 79.0 (>89)
--- NOTE | 2025-01-20 07:19 | XRAY Report ---
PROCEDURE: XR Chest 2V INDICATIONS: pneumothorax, s/p chest tube TECHNIQUE: 2 views of the chest were acquired. COMPARISON: 01/19/2025 and 01/18/2025 FINDINGS: Surgical changes and devices: Right-sided chest tube is again seen.. Lungs and pleura: There is interval increase in size of patient's known right- sided pneumothorax now measures up to 4.9 cm in largest craniocaudal dimension compared to 4.5 cm on the previous study. Left lung remains clear. Mediastinum: Mediastinal contours appear normal. Heart size is normal. Bones and chest wall: No suspicious bony lesions. Overlying soft tissues appear unremarkable. IMPRESSION: Interval increase in size of patient's known right-sided pneumothorax as above. Reviewed by: Javier Menezes MD on 01/20/2025 7:16 AM PDT Approved by: Javier Menezes MD on 01/20/2025 7:16 AM PDT Station ID: [id number]
--- NOTE | 2025-01-20 09:58 | PROVIDER PROGRESS NOTE ---
Subjective General Admit Date: 01/18/25 Other Other Information/Narrative: HD 3, right sided pneumothorax slightly increased in size with persistent air leak. On RA. Poor pain control overnight, awoke in pain. Using lidoderm patch at sacrum. Tolerating diet, no BM yet, has started miralax. Review of Systems Status of ROS: 10 or more systems reviewed and unremarkable except as noted in history and below Exam Exam Vital Signs: Vital Signs x48h Temp Pulse Resp BP Pulse Ox 01/20/25 08:04 36.9 C 45 L 20 139/85 H 97 01/20/25 05:49 36.6 C 42 L 20 149/83 H 98 01/20/25 03:12 36.7 C 45 L 22 134/82 H 98 Constitutional normal general appearance, no apparent distress and average body habitus HENMT normocephalic Chest mild ttp of right chest wall, right supraclavicular space. No ecchymosis. Chest tube in place at right lateral chest wall, tidaling with scant ssf output. Respiratory breath sounds equal bilaterally and normal respiratory effort Cardiovascular normal heart rate noted and regular rhythm noted Gastrointestinal abdomen normal to inspection Back/Pelvis thoracic spine tenderness noted and lumbar spine tenderness noted Extremities normal to inspection Psychiatry oriented x3 Skin skin color normal Image EXAM: [id number] XR/CXR2VW ([id number]) PROCEDURE: XR Chest 2V INDICATIONS: pneumothorax, s/p chest tube TECHNIQUE: 2 views of the chest were acquired. COMPARISON: 01/19/2025 and 01/18/2025 FINDINGS: Surgical changes and devices: Right-sided chest tube is again seen.. Lungs and pleura: There is interval increase in size of patient's known right- sided pneumothorax now measures up to 4.9 cm in largest craniocaudal dimension compared to 4.5 cm on the previous study. Left lung remains clear. Mediastinum: Mediastinal contours appear normal. Heart size is normal. Bones and chest wall: No suspicious bony lesions. Overlying soft tissues appear unremarkable. IMPRESSION: Interval increase in size of patient's known right-sided pneumothorax as above. Reviewed by: Javier Rosado MD on 01/20/2025 7:16 AM PDT Approved by: Javier Rosado MD on 01/20/2025 7:16 AM PDT EXAM: [id number] CT/CSPWO ([id number]) PROCEDURE: CT Cervical Spine WO INDICATIONS: s/p fall onto tailbone with total spine tenderness TECHNIQUE: Noncontrast images acquired from the skull base to the T4 level. Sagittal and coronal reformats were then constructed. For radiation dose reduction, the following was used: automated exposure control, adjustment of mA and/or kV according to patient size. COMPARISON: Correlation is made with the accompanying imaging. FINDINGS: Image quality: Excellent. Bones: No fractures or dislocations. Visualized superior ribs are intact. There is moderate to space narrowing seen at C3-C4, C4-C5, and C5-C6. At C5-C6, endplate irregularity and sclerosis can be seen. Soft tissues: Prevertebral soft tissues are normal in thickness. No paravertebral hematomas. No apical pneumothoraces. Emphysematous changes can be seen at the lung apices, including subpleural bleb formation. IMPRESSION: Negative for cervical spine fracture. Cervical spine degenerative changes are seen, which are worst at C5-C6. Reviewed by: Lawrence Mckeon MD on 01/19/2025 11:51 AM [facility]DT Approved by: Lawrence Mckeon MD on 01/19/2025 11:51 AM [facility]DT EXAM: [id number] CT/TSPWO ([id number]) PROCEDURE: CT Thoracic Spine WO INDICATIONS: s/p fall onto tailbone with total spine tenderness TECHNIQUE: Noncontrast images acquired through the region of interest in the thoracic spine. Sagittal and coronal reformats were then constructed. For radiation dose reduction, the following was used: automated exposure control, adjustment of mA and/or kV according to patient size. COMPARISON: Correlation is made with the accompanying imaging. Correlation is also made with prior chest CT, 01/18/2025. FINDINGS: Image quality: Excellent. Bones: There is normal overall bony alignment. No acute vertebral body compression fractures. No suspicious sclerotic or lytic bony lesions. Central spinal canal is of normal overall caliber. Soft tissues: No paravertebral masses or hematomas. Emphysematous changes can be seen within the visualized lungs. Within the [id number] of this study, there is a trace right-sided pneumothorax. A small amount of soft tissue gas is seen. IMPRESSION: No thoracic spine fracture is seen. There is a trace right-sided pneumothorax, with a small amount of associated soft tissue gas. Reviewed by: Lawrence Mckeon MD on 01/19/2025 11:58 AM JAYNA Approved by: Lawrence Mckeon MD on 01/19/2025 11:58 AM [facility] EXAM: [id number] CT/LSPWO ([id number]) PROCEDURE: CT Lumbar Spine WO INDICATIONS: s/p fall onto tailbone with total spine tenderness TECHNIQUE: Noncontrast images acquired from the T12 level to the sacrum. Sagittal and coronal reformats were constructed. For radiation dose reduction, the following was used: automated exposure control, adjustment of mA and/or kV according to patient size. COMPARISON: Correlation is made with the accompanying imaging. FINDINGS: Image quality: Excellent. Bones: There is a mildly displaced fracture seen involving S5 segment, as on series 13 image 32 and on series 15 image 590. No lumbar spine fracture is seen. There is minimal retrolisthesis seen at L5-S1. No suspicious lytic or blastic bony lesions. Central spinal caliber is of normal overall caliber. No pars defects. T12-L1: Normal in appearance. L1-L2: Normal in appearance. L2-L3: Normal in appearance. L3-L4: The disc height is well-preserved. Moderate disc bulge is seen at this level. A superimposed central disc protrusion is seen. Mild to moderate facet hypertrophy is seen. Mild to moderate bilateral neural femoral narrowing is seen. Mild central canal narrowing is seen. L4-L5: Moderate loss of disc height is seen. Moderate disc bulge is seen at this level. A superimposed central disc protrusion is seen. Moderate facet hypertrophy is seen. Moderate bilateral neural femoral narrowing can be seen, right worse than left. Moderate central canal narrowing is seen. L5-S1: At least moderate loss of disc height is seen. Moderate disc bulge is seen at this level. Endplate irregularity and sclerosis can be seen. Vacuum disc phenomenon is seen at this level. Moderate bilateral neural foraminal sheela rowing is seen. No significant central canal narrowing is seen. Soft tissues: No retroperitoneal masses or hematomas. Visualized aorta is normal in caliber. Atherosclerotic calcification is seen. IMPRESSION: There is a mildly displaced fracture seen involving the S5 segment. No lumbar spine fracture is seen. Lower lumbar spine degenerative changes are seen. Reviewed by: Lawrence Mckeon MD on 01/19/2025 11:55 AM AK[facility] Approved by: Lawrence Mckeon MD on 01/19/2025 11:55 AM [facility] ABX Reporting Has patient been on IV antibiotics over the past 48 hours?: No Impression/Plan Problem List (1) Fall (on) (from) other stairs and steps, initial encounter: (2) Primary spontaneous pneumothorax: (3) Sacral fracture, closed: Plan 49yoM s/p fall from truck and resultant right tension pneumothorax and S5 fracture, mildly displaced. Has large apical blebs on bilateral lungs. Degenerative changes on cervical and lumbar spine on CTL spine CT. HD3: - persistent large air leak and slight interval increase of right ptx. --- advanced chest tube 5cm, now 20cm at the skin. Repeat CXR now. --- maintain CT to wall suction --- daily CXR - multimodal pain control: scheduled PO tylenol, motrin, gabapentin, lidocaine patch, PRN oxycodone. Add dilaudid DRY TRANSFER MAN. - encourage ambulation/IS/Deep breathing/deep coughing. OK for waterseal during ambulation only. - Regular diet - labs stable, will DC - ppx lovenox - bowel regimen in conjunction with narcotic requirement Dispo: pending resolution of pneumothorax. Geeta Mak DO, FACS General Surgeon, [facility]
[2025-01-20] MEDS: fentaNYL 100 MCG/2 ML VIAL IVP STA (09:59)
--- NOTE | 2025-01-20 10:53 | XRAY Report ---
PROCEDURE: XR Chest 1V INDICATIONS: advanced chest tube 5cm TECHNIQUE: One view of the chest was acquired. COMPARISON: None. FINDINGS: Surgical changes and devices: Interval adjustment of right-sided chest tube, the tip is now near medial aspect of right apex. Lungs and pleura: Interval reexpansion of right lung. Trace residual right apical pneumothorax is seen. Mediastinum: Mediastinal contours appear normal. Heart size is normal. Bones and chest wall: No suspicious bony lesions. Overlying soft tissues appear unremarkable. IMPRESSION: Interval reexpansion of right lung with trace amount of residual right apical pneumothorax. Reviewed by: Javier Menezes MD on 01/20/2025 10:50 AM PDT Approved by: Javier Menezes MD on 01/20/2025 10:50 AM PDT Station ID: [id number]
--- NOTE | 2025-01-20 11:23 | PROVIDER PROGRESS NOTE ---
Subjective Prog Note Date Prog Note Date: 01/20/25 Subjective Pt reports feeling: No change Current Medications Current Medications Current Medications: Current Medications Generic Name Dose Route Start Last Admin Trade Name Freq PRN Reason Stop Dose Admin Acetaminophen 975 mg 01/18/25 19:00 01/20/25 11:16 Acetaminophen 325 Mg Tablet PO 975 mg Q8H KASI Administration Diphenhydramine HCl 25 mg 01/20/25 10:16 Diphenhydramine Inj 50 Mg/Ml Vial IVP Q6HR PRN ITCHING Docusate Sodium 100 mg 01/19/25 12:00 01/20/25 08:35 Docusate Sodium 100 Mg Capsule PO 100 mg DAILY KASI Administration Enoxaparin Sodium 40 mg 01/19/25 12:00 01/20/25 08:35 Enoxaparin 40 Mg/0.4 Ml Syringe SUBQ 40 mg DAILY KASI Administration Gabapentin 100 mg 01/18/25 22:00 01/20/25 05:47 Gabapentin 100 Mg Capsule PO 100 mg TID KASI Administration Hydromorphone HCl 0 mg 01/20/25 10:16 Hydromorphone Ter[employer] 20mg/100ml IV PRN PRN Severe Pain (Level 7-10) Protocol Ibuprofen 600 mg 01/18/25 19:00 01/20/25 11:15 Ibuprofen 600 Mg Tablet PO 600 mg Q6HR KASI Administration Lidocaine 1 patch 01/19/25 09:00 01/20/25 08:35 Lidocaine Patch 4% TOP 1 patch DAILY KASI Administration Ondansetron HCl 4 mg 01/18/25 19:00 Ondansetron 4 Mg/2 Ml Vial IVP Q6H PRN Nausea / Vomiting Oxycodone HCl 5 mg 01/18/25 19:00 01/20/25 08:35 Oxycodone 5 Mg Tablet PO 5 mg Q4HR PRN Administration Moderate Pain (Level 4-6) Polyethylene Glycol 17 gm 01/19/25 12:00 01/20/25 08:35 Polyethylene Glycol 3350 17 Gm Packet PO 17 gm DAILY KASI Administration Sodium Chloride 10 ml 01/19/25 01:00 01/20/25 08:36 Sodium Chloride Flush 0.9% 10 Ml Syringe IVP 10 ml 0100,0900,1700 KASI Administration Sodium Chloride 10 ml 01/18/25 19:00 Sodium Chloride Flush 0.9% 10 Ml Syringe IVP PRN PRN NEEDED PER PROVIDER ORDERS Objective Vital Signs/Intake & Output Reviewed Vital Signs: Yes Vital Signs: Vital Signs x48h Temp Pulse Resp BP Pulse Ox 01/20/25 08:04 36.9 C 45 L 20 139/85 H 97 01/20/25 05:49 36.6 C 42 L 20 149/83 H 98 Intake & Output: Intake & Output 01/17/25 01/18/25 01/19/25 01/20/25 23:59 23:59 23:59 23:59 Intake Total 100 / 100 1766 / 1766 600 / 600 Output Total 450 / 450 900 / 900 1250 / 1250 Balance -350 / -350 866 / 866 -650 / -650 Weight (kg) 70.5 kg Objective General Appearance: positive No acute distress and Alert Eyes Bilateral: positive Normal inspection ENT: positive ENT inspection nml Neck: positive Nml inspection Respiratory: positive Breath sounds nml; negative Chest non-tender Cardiovascular: positive Regular rate & rhythm Abdomen: positive Non-tender Skin: positive Color nml Extremities: positive Non-tender Neurologic/Psychiatric: positive Oriented x3 Lab Results 01/20/25 05:46 01/20/25 05:46 Other Labs: Lab Results x24hrs 01/20/25 Range/Units 05:46 WBC 6.5 (4.8-10.8) x10^3/uL RBC 4.53 L (4.70-6.10) 10^6/uL Hgb 13.5 L (14.0-18.0) g/dL Hct 41.1 L (42.0-52.0) % MCV 90.7 (80.0-94.0) fL MCH 29.8 (27.0-31.0) pg MCHC 32.8 (32.0-36.0) g/dL RDW 12.4 (12.0-15.0) % Plt Count 234 (130-450) 10^3/uL MPV 9.7 (7.4-11.4) fL Neut # (Auto) 3.4 (1.5-6.6) 10^3/uL Lymph # (Auto) 1.4 L (1.5-3.5) 10^3/uL Greene # (Auto) 0.8 (0.0-1.0) 10^3/uL Eos # (Auto) 0.8 H (0.0-0.7) 10^3/uL Baso # (Auto) 0.1 (0.0-0.1) 10^3/uL Absolute Nucleated RBC 0.00 x10^3/uL Nucleated RBC % 0.0 /100WBC Sodium 137 (135-145) mmol/L Potassium 3.7 (3.5-4.5) mmol/L Chloride 104 (101-111) mmol/L Carbon Dioxide 30 (21-32) mmol/L Anion Gap 3.0 L (6-13) BUN 14 (6-20) mg/dL Creatinine 1.0 (0.6-1.3) mg/dL Estimated GFR (MDRD) 79 L (>89) Glucose 89 (74-104) mg/dL Calcium 9.0 (8.5-10.3) mg/dL Assessment/Plan Problem List (1) Primary spontaneous pneumothorax: Impression: Admitted under surgery Small bore lateral right chest tube in place to suction Pain management with scheduled Tylenol, gabapentin, ibuprofen, lidocaine patch as well as as needed oxycodone and hydromorphone Patient is not requesting his PRNs, preferring to manage his pain with only his scheduled nonnarcotics I-S, chest tube care per protocol (2) Sacral fracture, closed: Impression: Mildly displaced S5 fracture noted on CT Pain management as above Discussed case with orthopedic surgery. They report that in the absence of neurologic deficit, nothing to do surgically for this (3) Spine pain, multilevel: Impression: CT scan C, L, T-spine ordered by surgery Pain management as above Denies numbness in his legs
[2025-01-20] MEDS ORDERED: HYDROmorphone 0.5 MG/0.5 ML SYRINGE IVP PRN (12:40)
[2025-01-20] MEDS: HYDROmorphone PCA 20MG/100ML IV PRN (14:47)
--- NOTE | 2025-01-21 08:55 | XRAY Report ---
PROCEDURE: XR Chest 2V INDICATIONS: pneumothorax, s/p chest tube TECHNIQUE: 2 views of the chest were acquired. COMPARISON: None. FINDINGS: New moderate to large right pneumothorax with up to 6.5 cm apical pleural retraction. Follow-up is needed. There is a right chest tube in place with the distal tip right upper medial hemithorax and sideport right upper hemithorax similar to the prior exam. Subcutaneous emphysema along the right lateral chest wall slightly increased. Left lung is relatively clear. Cardiopericardial silhouette and pulmonary vasculature are within normal limits. IMPRESSION: New moderate to large right pneumothorax as discussed above. Follow-up is needed. Right chest tube unchanged. Reviewed by: Jorge Delgado MD on 01/21/2025 8:51 AM PDT Approved by: Jorge Delgado MD on 01/21/2025 8:51 AM PDT Station ID: [id number]
--- NOTE | 2025-01-21 11:24 | PROVIDER PROGRESS NOTE ---
Subjective General Admit Date: 01/18/25 Procedure Date: 01/18/25 Post Op Days: 3 Procedure Performed: R chest tube placement Other Other Information/Narrative: Doing well today, denies any difficulty breathing and reports that his pain is well controlled. Went for CXR off suction today which demonstrated recurrence of his pneumo. Currently in bed back on suction, states he did not feel any chest tightness/pain or SOB while he was getting his CXR done earlier. Review of Systems Status of ROS: 10 or more systems reviewed and unremarkable except as noted in history and below Exam Exam Vital Signs: Vital Signs x48h Temp Pulse Resp BP BP Pulse Ox 01/21/25 08:42 36.8 C 52 L 16 151/82 H 99 01/21/25 06:57 16 01/21/25 05:56 36.7 C 47 L 18 150/83 H 97 Constitutional normal general appearance, no apparent distress and average body habitus HENMT normocephalic Eyes PERRL Neck/C-Spine visual inspection normal Lymph no lymphadenopathy noted Chest inspection of chest normal and palpation of chest normal mild ttp of right chest wall, right supraclavicular space. No ecchymosis. Chest tube in place at right lateral chest wall, minimal serosanguineous output but significant constant air leak appreciated. Respiratory normal respiratory effort Cardiovascular normal heart rate noted and regular rhythm noted Gastrointestinal abdomen normal to inspection, abdomen soft to palpation and nontender to palpation Back/Pelvis thoracic spine tenderness noted and lumbar spine tenderness noted Extremities normal to inspection and normal to palpation Neurology GCS 15 Psychiatry oriented x3, cooperative and affect normal Skin skin color normal Image EXAM: [id number] XR/CXR2VW ([id number]) PROCEDURE: XR Chest 2V INDICATIONS: pneumothorax, s/p chest tube TECHNIQUE: 2 views of the chest were acquired. COMPARISON: 01/19/2025 and 01/18/2025 FINDINGS: Surgical changes and devices: Right-sided chest tube is again seen.. Lungs and pleura: There is interval increase in size of patient's known right- sided pneumothorax now measures up to 4.9 cm in largest craniocaudal dimension compared to 4.5 cm on the previous study. Left lung remains clear. Mediastinum: Mediastinal contours appear normal. Heart size is normal. Bones and chest wall: No suspicious bony lesions. Overlying soft tissues appear unremarkable. IMPRESSION: Interval increase in size of patient's known right-sided pneumothorax as above. Reviewed by: Javier Rosado MD on 01/20/2025 7:16 AM PDT Approved by: Javier Rosado MD on 01/20/2025 7:16 AM PDT EXAM: [id number] CT/CSPWO ([id number]) PROCEDURE: CT Cervical Spine WO INDICATIONS: s/p fall onto tailbone with total spine tenderness TECHNIQUE: Noncontrast images acquired from the skull base to the T4 level. Sagittal and coronal reformats were then constructed. For radiation dose reduction, the following was used: automated exposure control, adjustment of mA and/or kV according to patient size. COMPARISON: Correlation is made with the accompanying imaging. FINDINGS: Image quality: Excellent. Bones: No fractures or dislocations. Visualized superior ribs are intact. There is moderate to space narrowing seen at C3-C4, C4-C5, and C5-C6. At C5-C6, endplate irregularity and sclerosis can be seen. Soft tissues: Prevertebral soft tissues are normal in thickness. No paravertebral hematomas. No apical pneumothoraces. Emphysematous changes can be seen at the lung apices, including subpleural bleb formation. IMPRESSION: Negative for cervical spine fracture. Cervical spine degenerative changes are seen, which are worst at C5-C6. Reviewed by: Lawrence Mckeon MD on 01/19/2025 11:51 AM AKDT Approved by: Lawrence Mckeon MD on 01/19/2025 11:51 AM AKDT EXAM: [id number] CT/TSPWO ([id number]) PROCEDURE: CT Thoracic Spine WO INDICATIONS: s/p fall onto tailbone with total spine tenderness TECHNIQUE: Noncontrast images acquired through the region of interest in the thoracic spine. Sagittal and coronal reformats were then constructed. For radiation dose reduction, the following was used: automated exposure control, adjustment of mA and/or kV according to patient size. COMPARISON: Correlation is made with the accompanying imaging. Correlation is also made with prior chest CT, 01/18/2025. FINDINGS: Image quality: Excellent. Bones: There is normal overall bony alignment. No acute vertebral body compression fractures. No suspicious sclerotic or lytic bony lesions. Central spinal canal is of normal overall caliber. Soft tissues: No paravertebral masses or hematomas. Emphysematous changes can be seen within the visualized lungs. Within the hnicg-rd-fihd of this study, the re is a trace right-sided pneumothorax. A small amount of soft tissue gas is seen. IMPRESSION: No thoracic spine fracture is seen. There is a trace right-sided pneumothorax, with a small amount of associated soft tissue gas. Reviewed by: Lawrence Mckeon MD on 01/19/2025 11:58 AM JAYNA Approved by: Lawrence Mckeon MD on 01/19/2025 11:58 AM [facility] EXAM: [id number] CT/LSPWO ([id number]) PROCEDURE: CT Lumbar Spine WO INDICATIONS: s/p fall onto tailbone with total spine tenderness TECHNIQUE: Noncontrast images acquired from the T12 level to the sacrum. Sagittal and coronal reformats were constructed. For radiation dose reduction, the following was used: automated exposure control, adjustment of mA and/or kV according to patient size. COMPARISON: Correlation is made with the accompanying imaging. FINDINGS: Image quality: Excellent. Bones: There is a mildly displaced fracture seen involving S5 segment, as on series 13 image 32 and on series 15 image 590. No lumbar spine fracture is seen. There is minimal retrolisthesis seen at L5-S1. No suspicious lytic or blastic bony lesions. Central spinal caliber is of normal overall caliber. No pars defects. T12-L1: Normal in appearance. L1-L2: Normal in appearance. L2-L3: Normal in appearance. L3-L4: The disc height is well-preserved. Moderate disc bulge is seen at this level. A superimposed central disc protrusion is seen. Mild to moderate facet hypertrophy is seen. Mild to moderate bilateral neural femoral narrowing is seen. Mild central canal narrowing is seen. L4-L5: Moderate loss of disc height is seen. Moderate disc bulge is seen at this level. A superimposed central disc protrusion is seen. Moderate facet hypertrophy is seen. Moderate bilateral neural femoral narrowing can be seen, right worse than left. Moderate central canal narrowing is seen. L5-S1: At least moderate loss of disc height is seen. Moderate disc bulge is seen at this level. Endplate irregularity and sclerosis can be seen. Vacuum disc phenomenon is seen at this level. Moderate bilateral neural foraminal narrowing is seen. No significant central canal narrowing is seen. Soft tissues: No retroperitoneal masses or hematomas. Visualized aorta is normal in caliber. Atherosclerotic calcification is seen. IMPRESSION: There is a mildly displaced fracture seen involving the S5 segment. No lumbar spine fracture is seen. Lower lumbar spine degenerative changes are seen. Reviewed by: Lawrence Mckeon MD on 01/19/2025 11:55 AM AKDT Approved by: Lawrence Mckeon MD on 01/19/2025 11:55 AM AKDT Impression/Plan Problem List (1) Primary spontaneous pneumothorax: (2) Sacral fracture, closed: (3) Spine pain, multilevel: Plan Persistent large air leak and recurrenct of right ptx on AM CXR off suction. - maintain CT to wall suction - repeat CXR now on suction - multimodal pain control: scheduled PO tylenol, motrin, gabapentin, lidocaine patch, PRN oxycodone. Add dilaudid [employer]. - encourage ambulation/IS/Deep breathing/deep coughing. - Regular diet - ppx lovenox - bowel regimen in conjunction with narcotic requirement Dispo: pending resolution of pneumothorax, if continued recurrence and air leak may require transfer for R VATS.
[2025-01-21] MEDS: ACETAMINOPHEN 325 MG TABLET PO SCH (12:15)
--- NOTE | 2025-01-21 12:48 | PROVIDER PROGRESS NOTE ---
Subjective Prog Note Date Prog Note Date: 01/21/25 Subjective Pt reports feeling: No change Current Medications Current Medications Current Medications: Current Medications Generic Name Dose Route Start Last Admin Trade Name Freq PRN Reason Stop Dose Admin Acetaminophen 975 mg 01/21/25 12:00 01/21/25 12:15 Acetaminophen 325 Mg Tablet PO 975 mg Q8H KASI Administration Diphenhydramine HCl 25 mg 01/20/25 10:16 Diphenhydramine Inj 50 Mg/Ml Vial IVP Q6HR PRN ITCHING Diphenhydramine HCl 25 mg 01/20/25 21:43 01/20/25 22:00 Diphenhydramine 25 Mg Capsule PO 25 mg Q4HR PRN Administration Allergy Symptoms Docusate Sodium 100 mg 01/19/25 12:00 01/21/25 09:22 Docusate Sodium 100 Mg Capsule PO 100 mg DAILY KASI Administration Enoxaparin Sodium 40 mg 01/19/25 12:00 01/21/25 09:22 Enoxaparin 40 Mg/0.4 Ml Syringe SUBQ 40 mg DAILY KASI Administration Gabapentin 100 mg 01/18/25 22:00 01/21/25 06:56 Gabapentin 100 Mg Capsule PO 100 mg TID KASI Administration Hydromorphone HCl 0 mg 01/20/25 10:16 01/20/25 14:47 Hydromorphone Extractions Technician 20mg/100ml IV 0.2 mg PRN PRN Administration Severe Pain (Level 7-10) Protocol Ibuprofen 600 mg 01/18/25 19:00 01/21/25 12:16 Ibuprofen 600 Mg Tablet PO 600 mg Q6HR KASI Administration Lidocaine 1 patch 01/19/25 09:00 01/21/25 09:22 Lidocaine Patch 4% TOP 1 patch DAILY KASI Administration Ondansetron HCl 4 mg 01/18/25 19:00 Ondansetron 4 Mg/2 Ml Vial IVP Q6H PRN Nausea / Vomiting Oxycodone HCl 5 mg 01/18/25 19:00 01/20/25 14:47 Oxycodone 5 Mg Tablet PO 5 mg Q4HR PRN Administration Moderate Pain (Level 4-6) Polyethylene Glycol 17 gm 01/19/25 12:00 01/21/25 09:22 Polyethylene Glycol 3350 17 Gm Packet PO 17 gm DAILY KASI Administration Sodium Chloride 10 ml 01/19/25 01:00 01/21/25 09:23 Sodium Chloride Flush 0.9% 10 Ml Syringe IVP 10 ml 0100,0900,1700 KASI Administration Sodium Chloride 10 ml 01/18/25 19:00 Sodium Chloride Flush 0.9% 10 Ml Syringe IVP PRN PRN NEEDED PER PROVIDER ORDERS Objective Vital Signs/Intake & Output Reviewed Vital Signs: Yes Vital Signs: Vital Signs x48h Temp Pulse Resp BP BP Pulse Ox 01/21/25 12:11 16 01/21/25 08:42 36.8 C 52 L 16 151/82 H 99 01/21/25 06:57 16 01/21/25 05:56 36.7 C 47 L 18 150/83 H 97 Intake & Output: Intake & Output 01/18/25 01/19/25 01/20/25 01/21/25 23:59 23:59 23:59 23:59 Intake Total 100 / 100 1766 / 1766 950 / 950 1194 / 1194 Output Total 450 / 450 900 / 900 1900 / 1900 1525 / 1525 Balance -350 / -350 866 / 866 -950 / -950 -331 / -331 Weight (kg) 70.5 kg Objective General Appearance: positive No acute distress and Alert Eyes Bilateral: positive Normal inspection ENT: positive ENT inspection nml Neck: positive Nml inspection Respiratory: positive Breath sounds nml and Other (Chest tube to suction with air bubbling. No subcu air); negative Chest non-tender Cardiovascular: positive Regular rate & rhythm Abdomen: positive Non-tender Skin: positive Color nml Extremities: positive Non-tender Neurologic/Psychiatric: positive Oriented x3 Lab Results 01/20/25 05:46 01/20/25 05:46 Other Labs: Lab Results x24hrs 01/20/25 Range/Units 05:46 WBC 6.5 (4.8-10.8) x10^3/uL RBC 4.53 L (4.70-6.10) 10^6/uL Hgb 13.5 L (14.0-18.0) g/dL Hct 41.1 L (42.0-52.0) % MCV 90.7 (80.0-94.0) fL MCH 29.8 (27.0-31.0) pg MCHC 32.8 (32.0-36.0) g/dL RDW 12.4 (12.0-15.0) % Plt Count 234 (130-450) 10^3/uL MPV 9.7 (7.4-11.4) fL Neut # (Auto) 3.4 (1.5-6.6) 10^3/uL Lymph # (Auto) 1.4 L (1.5-3.5) 10^3/uL Barber # (Auto) 0.8 (0.0-1.0) 10^3/uL Eos # (Auto) 0.8 H (0.0-0.7) 10^3/uL Baso # (Auto) 0.1 (0.0-0.1) 10^3/uL Absolute Nucleated RBC 0.00 x10^3/uL Nucleated RBC % 0.0 /100WBC Sodium 137 (135-145) mmol/L Potassium 3.7 (3.5-4.5) mmol/L Chloride 104 (101-111) mmol/L Carbon Dioxide 30 (21-32) mmol/L Anion Gap 3.0 L (6-13) BUN 14 (6-20) mg/dL Creatinine 1.0 (0.6-1.3) mg/dL Estimated GFR (MDRD) 79 L (>89) Glucose 89 (74-104) mg/dL Calcium 9.0 (8.5-10.3) mg/dL Assessment/Plan Problem List (1) Primary spontaneous pneumothorax: Impression: Admitted under surgery Small bore lateral right chest tube in place to suction Pain management with scheduled Tylenol, gabapentin, ibuprofen, lidocaine patch as well as as needed oxycodone and hydromorphone Patient is not requesting his PRNs, preferring to manage his pain with only his scheduled nonnarcotics I-S, chest tube care per protocol 01/21: Surgery attempted waterseal again and his pneumothorax redemonstrated. Surgery is currently working on transferring him out to a facility with CTS. (2) Sacral fracture, closed: Impression: Mildly displaced S5 fracture noted on CT Pain management as above Discussed case with orthopedic surgery. They report that in the absence of neurologic deficit, nothing to do surgically for this (3) Spine pain, multilevel: Impression: CT scan C, L, T-spine ordered by surgery Pain management as above Denies numbness in his legs
--- NOTE | 2025-01-21 13:02 | XRAY Report ---
PROCEDURE: XR Chest 1V INDICATIONS: Recurrent pneumo off suction, repeat CXR on suctio TECHNIQUE: Single frontal view of the chest was obtained COMPARISON: 01/21/2025 FINDINGS: Instrumentation: Right-sided chest tube in place Heart size, mediastinum and pulmonary vasculature: Unremarkable. Lungs and pleural spaces: Right apical pneumothorax is significantly improved compared to the prior exam now measuring 2.4 cm to the thoracic apex Osseous structures: Unremarkable IMPRESSION: Persistent but improving right apical pneumothorax with chest tube in good position Reviewed by: Dusty Platt MD on 01/21/2025 11:59 AM JAYNA Approved by: Dusty Platt MD on 01/21/2025 11:59 AM JAYNA Station ID: [id number]
--- NOTE | 2025-01-21 16:53 | Discharge Summary ---
"Discharge Summary Admit Date: 01/18/25 Discharge Date: 01/21/25 Discharging Provider: Wilber Aguilera Code Status: Attempt Resuscitation Discharge [facility] DIAGNOSES Admission Diagnoses: Right pneumothorax Discharge Diagnoses with Status of Each Condition: Right pneumothorax, ongoing despite appropriate positioning of chest tube HPI History of Present Illness: 49M with no significant PMH/PSH other than vaping (cannabis) presents after fall with tension pneumothorax. He fell from a truck bed landing with his coccyx on a tree stump while working on afternoon. No head strike or other impact site, no LOC. He had significant pain around the tailbone, and felt like the wind was knocked out of him, went home to rest. Went to work Tuesday morning and after a brief effort of relatively mild exertion felt significantly SOB. From there he presented to the [facility], a CXR showed a right pneumothorax and he was sent to the ED. In the ED his repeat CXR showed mediastinal deviation c/w tension pneumothorax; he was tachycardic and tachypneic but normotensive. ED provider placed a right sided chest tube (lateral MAL 4th ICS) and he was admitted to the floor for continued management. CONSULTS | PROCEDURES Procedures: 01/18 R chest tube placement, 01/20 R chest tube repositioning HOSPITAL COURSE Hospital Course: After admission with chest tube in place his pneumothorax did not completely resolve and continuing air leak until the chest tube was repositioned on 01/20. After repositioning the pneumothorax appeared resolved until he was taken off suction and found to have large recurrence. He also continued to have large constant air leak. ALLERGIES Allergies Allergy/AdvReac Type Severity Reaction Status Date / Time No Known Drug Allergies Allergy Verified 01/18/25 15:22 MEDICATIONS Ambulatory Orders Medication Instructions Recorded Confirmed ibuprofen 200 mg tablet (Advil) 800 mg PO TID PRN pain 01/19/25 01/19/25 PHYSICAL EXAM AT DISCHARGE Vital Signs: Vital Signs x48h Temp Pulse Resp BP Pulse Ox 01/21/25 16:10 36.9 C 49 L 16 150/83 H 98 01/21/25 12:56 37.0 C 55 L 16 135/79 H 96 01/21/25 12:11 16 General Appearance: positive No acute distress Eyes Bilateral: positive Normal inspection ENT: positive ENT inspection nml Neck: positive Nml inspection Respiratory: positive No respiratory distress Cardiovascular: positive Regular rate & rhythm Peripheral Pulses: positive 2+ Abdomen: positive Non-tender Skin: positive Color nml Extremities: positive Non-tender Neurologic/Psychiatric: positive Oriented x3 LABS 01/20/25 05:46 01/20/25 05:46 DIAGNOSTIC IMAGING Diagnostic Imaging Results: Final report reviewed TIME SPENT Time Spent in Discharge (Minutes): 40 Discharge Plan Discharge Patient Disposition: 02 Transfer Acute Care Hosp Condition: Stable Prescriptions: No Action ibuprofen [Advil] 200 mg tablet 800 mg PO TID PRN (Reason: pain) Diet: Regular Care Plan Goals: Evaluation by Thoracic surgery for consideration of VATS Print Language: [place] Stand Alone Forms: PCP List Follow-up Care: NONE,MD TANA [Primary Care Provider, Internal Medicine] Report called to and time (if no answer, doc. time of each call attempted): Kath alvarado to transfer service and Dr. Zazueta at 1334 on 01/21/25 Vitals documented within 30 minutes of discharge?: Yes"
[2025-01-21 20:44] VITALS: BP 153/87; TEMP 98.8; O2SAT 97
== END 2025-01-21 18:35 | disposition short-term general hospital (02) ==
LOC: MS2 17:30 → ED 17:30 → MS2 18:55
PROVIDERS: ADMIT Surgery; ATTEND Surgery
DX: R00.0 Tachycardia, unspecified; J93.0 Spontaneous tension pneumothorax; W17.89XA Other fall from one level to another, initial encounter; Y99.0 Civilian activity done for income or pay; S32.131A Minimally displaced Zone III fracture of sacrum, initial encounter for closed fracture